=== PATIENT | female | born 1935 | race Caucasian/White ===

== ENCOUNTER 2016-09-14 21:29 | Emergency (ER) | payer OTHER ==
--- NOTE | 2016-09-14 21:25 | EDPHY ---
H & P Time Seen by Provider: 09/14/16 21:29 HPI/ROS: CHIEF COMPLAINT: Chest pain HISTORY OF PRESENT ILLNESS: Patient arrives by EMS after having called her caregiver at 7:00 p.m. for an episode of chest pain. The patient tells me she at that time was lying in bed and had left arm pain and chest pain and possibly radiating to her jaw but only lasted 30 seconds. Per her caregiver she was a little bit short of breath at that time, but denies any symptoms now. Symptoms were moderate then and presently gone. No syncope, no coughing, no fever or chills. REVIEW OF SYSTEMS: Eye: no change in vision ENT: no sore throat or dental symptoms Cardiac: HPI Pulmonary: no cough or SOB Abdomen: no vomiting, diarrhea, abdominal pain Musculoskeletal: no back pain Skin: no rash Neuro: no headache Constitutional: no fever : no urinary symptoms A comprehensive 10 point review of systems is otherwise negative aside from elements mentioned in the history of present illness. PAST MEDICAL HISTORY: History also through the patient's caregiver Mary who is present in the ED shortly after EMS arrival. Includes atrial fibrillation, surgery for congenital heart issue, paranoid schizophrenia. Hypertension and GERD. Social history: Transported from [facility]. Son also present during ED course. General Appearance: Alert and conversant, cooperative. Thin. Eyes: No scleral icterus. ENT, Mouth: Normal mucous membranes. Normal pharynx, no trismus. Respiratory: Normal respiratory effort, breath sounds equal, lungs are clear to auscultation. Cardiovascular: Irregular rate and rhythm, no murmur. Gastrointestinal: Abdomen is soft and non tender. Neurological: Alert and answers questions, follows commands. Normally conversant. Face symmetric, normal movement and sensation in all extremities. Skin: Warm and dry, no rashes. Musculoskeletal: No peripheral edema and no joint swelling. Normal ROM of left shoulder and arm, no deformity or tenderness there. Psychiatric: Not agitated. Occasionally tangential but able to be redirected. Baseline neuro per family. Emergency Department course/MDM: Patient is on Eliquis for atrial fibrillation, no aspirin given, and I think pulmonary embolism would be unlikely. No acute ischemic changes on EKG, symptoms only lasted half a minute per patient. 2157: Heart rate up and the 130s, 5 mg IV metoprolol given as she is already on metoprolol. 2230: I had an extensive discussion with the patient, her caregiver, and her son regarding the data including elevated troponin and options, including admission and possible interventions for ACS. She does have a MOST form that clearly states no CPR if she goes into cardiac arrest. She wants to minimize invasive procedures including angiography or anything requiring inpatient stay or sedation. Warned that if discharged about myocardial infarction, "heart attack" and cardiac arrest as possible outcomes/consequences. At this point they wanted to discuss among family and will get back to me with the decision. 2240: hr 108. The son tells me they have discussed the patient's situation with her, and with her brother (retired physician) via phone, and they would like to go home. That is her clear preference. The son who is POA, patient, caregiver, and her brother all feel this is a reasonable decision. They state that they understand that it is possible she had a heart attack tonight and that by going home she risks cardiac arrest, worsening cardiac disability, or . 2248: Discussed with injection wax molder for PCP who agrees with plan. Constitutional: Initial Vital Signs Temperature (C) 36.6 C 09/14/16 21:46 Heart Rate 113 H 09/14/16 21:46 Respiratory Rate 16 09/14/16 21:46 Blood Pressure 133/74 H 09/14/16 21:46 O2 Sat (%) 96 09/14/16 21:46 O2 Delivery Mode Room Air Allergies/Adverse Reactions: STRAWBERRIES Allergy (Unknown, Uncoded 09/14/16 21:45) Home Medications: Medication Instructions Recorded Digoxin 09/14/16 Eliquis 09/14/16 Ibuprofen 09/14/16 Metoprolol Tartrate 09/14/16 Olanzapine 09/14/16 Pepcid 09/14/16 Medical Decision Making - Diagnostics EKG Interpretation: 12-lead EKG interpreted by me; official reading is in trace master. My interpretation is atrial fibrillation, rate 128. No acute ischemic changes. Imaging Results: Imaging Impressions Chest X-Ray 09/14/16 21:36 Impression: Nothing acute radiographically. Interpreted personally chest x-ray no change from 09/05/2015. Specifically no widened mediastinum or pulmonary infiltrates. Differential Diagnosis: Differential diagnosis considered for chest pain including but not limited to myocardial ischemia, aortic dissection, pericarditis, pulmonary embolus, chest wall pain, pleural inflammation and pulmonary infectious causes. Consult/Admit Bed Type: 2247 for Jeri Lim - Data Points Laboratory Results: Laboratory Results 09/14/16 21:39 09/14/16 21:39 09/14/16 09/14/16 09/14/16 21:39 21:39 21:39 WBC 6.46 10^3/uL 10^3/uL (3.80-9.50) RBC 4.11 10^6/uL L 10^6/uL (4.18-5.33) Hgb 13.1 g/dL g/dL (12.6-16.3) Hct 40.7 % % (38.0-47.0) MCV 99.0 fL fL (81.5-99.8) MCH 31.9 pg pg (27.9-34.1) MCHC 32.2 g/dL L g/dL (32.4-36.7) RDW 12.9 % % (11.5-15.2) Plt Count 355 10^3/uL 10^3/uL (150-400) MPV 10.5 fL fL (8.7-11.7) Neut % (Auto) 37.9 % L % (39.3-74.2) Lymph % (Auto) 46.3 % H % (15.0-45.0) [place] % (Auto) 9.8 % % (4.5-13.0) Eos % (Auto) 4.5 % % (0.6-7.6) Baso % (Auto) 1.2 % % (0.3-1.7) Nucleat RBC Rel Count 0.0 % % (0.0-0.2) Absolute Neuts (auto) 2.45 10^3/uL 10^3/uL (1.70-6.50) Absolute Lymphs (auto) 2.99 10^3/uL 10^3/uL (1.00-3.00) Absolute Monos (auto) 0.63 10^3/uL 10^3/uL (0.30-0.80) Absolute Eos (auto) 0.29 10^3/uL 10^3/uL (0.03-0.40) Absolute Basos (auto) 0.08 10^3/uL 10^3/uL (0.02-0.10) Absolute Nucleated RBC 0.00 10^3/uL 10^3/uL (0-0.01) Immature Gran % 0.3 % % (0.0-1.1) Immature Gran # 0.02 10^3/uL 10^3/uL (0.00-0.10) Sodium 138 mEq/L mEq/L (134-144) Potassium 5.1 mEq/L mEq/L (3.5-5.2) Chloride 101 mEq/L mEq/L (97-110) Carbon Dioxide 27 mEq/l mEq/l (22-31) Anion Gap 10 mEq/L mEq/L (8-16) BUN 24 mg/dL H mg/dL (7-23) Creatinine 0.8 mg/dL mg/dL (0.6-1.0) Estimated GFR > 60 Glucose 95 mg/dL mg/dL (70-100) Calcium 9.8 mg/dL mg/dL (8.5-10.4) Troponin I 0.155 ng/mL H ng/mL (0-0.034) Digoxin 1.0 ng/mL ng/mL (0.8-2.0) Medications Given: Discontinued Medications Metoprolol Tartrate (Lopressor Injection) 5 mg IVP EDNOW ONE Stop: 09/14/16 21:59 Last Admin: 09/14/16 22:05 Dose: 5 mg Departure - Departure Disposition: Home, Routine, Self-Care Clinical Impression: Chest pain, Troponin level elevated Condition: Good Instructions: Chest Pain (ED) Referrals: Brian Lim MD [Medical Doctor] - As per Instructions
--- NOTE | 2016-09-14 21:43 | CPEKG ---
Heart Rate: 128 RR Interval: 469 QRSD Interval: 90 QT Interval: 276 QTC Interval: 403 QRS [place]: 76 T Wave [place]: 126 EKG Severity - ABNORMAL ECG - EKG Impression: ATRIAL FIBRILLATION, V-RATE 89-160 Electronically Signed By: Mohit Meraz 14-Sep-2016 21:51:15
[2016-09-14 21:45] LABS: % IMMATURE GRANULYOCYTES 0.3 % (0.0-1.1); ABSOLUTE IMMATURE GRANULOCYTES 0.02 10^3/uL (0.00-0.10); ADD DIFF? NO; ADD MORPH? NO; ADD SCAN? NO; ATYPICAL LYMPHOCYTE FLAG 0 (0-99); FRAGMENT RBC FLAG 0 (0-99); HEMATOCRIT 40.7 % (38.0-47.0); HEMOGLOBIN 13.1 g/dL (12.6-16.3); LEFT SHIFT FLG 0 (0-99); LIPEMIA HEMOLYSIS FLAG 80 (0-99); MEAN CELL HEMOGLOBIN 31.9 pg (27.9-34.1); MEAN CELL HEMOGLOBIN CONCENTR. 32.2 g/dL (32.4-36.7); MEAN PLATELET VOLUME 10.5 fL (8.7-11.7); PLATELET CLUMPS FLAG 0 (0-99); PLATELET COUNT 355 10^3/uL (150-400); RED BLOOD CELL COUNT 4.11 10^6/uL (4.18-5.33); RED CELL DISTRIBUTION WIDTH 12.9 % (11.5-15.2)
[2016-09-14 21:50] VITALS: RESP 16; TEMP 97.9; O2SAT 96
[2016-09-14 21:55] LABS: ANION GAP 10 mEq/L (8-16); CALCIUM 9.8 mg/dL (8.5-10.4); CARBON DIOXIDE 27 mEq/l (22-31); CHLORIDE 101 mEq/L (97-110); CREATININE 0.8 mg/dL (0.6-1.0); GLOMERULAR FILTRATION RATE > 60; GLUCOSE 95 mg/dL (70-100); POTASSIUM 5.1 mEq/L (3.5-5.2); SODIUM 138 mEq/L (134-144)
[2016-09-14] MEDS ORDERED: METOPROLOL TARTRATE 5 MG/5 ML INJ IVP ONE (21:58)
[2016-09-14] MEDS ORDERED: METOPROLOL TARTRATE 5 MG/5 ML INJ ONE (21:59)
[2016-09-14 22:07] LABS: TROPONIN I 0.155 ng/mL (0-0.034)
[2016-09-14 23:01] VITALS: BP 115/74; PULSE 101
== END 2016-09-14 23:02 | disposition home or self-care (01) ==
LOC: EDUNIT#
DX: R07.9 Chest pain, unspecified (principal); R79.89 Other specified abnormal findings of blood chemistry; Z79.01 Long term (current) use of anticoagulants
CPT/HCPCS: 96374

== ENCOUNTER 2018-07-16 17:13 | Inpatient (IN) | payer OTHER ==
--- NOTE | 2018-07-16 17:17 | EDPHY ---
H & P Time Seen by Provider: 07/16/18 17:17 - Medical/Surgical History Hx Asthma: No Hx Chronic Respiratory Disease: No Hx Diabetes: No Hx Cardiac Disease: No Hx Renal Disease: No Hx Cirrhosis: No Hx Alcoholism: No Hx HIV/AIDS: No Hx Splenectomy or Spleen Trauma: No Other PMH: Heart av shunt, kidney stones, tonsils, probable PDA repair as a child, paranoid schizo, a fib, right cataract, paranoid schizo, HTN, GERD, osteoporosis - Social History Smoking Status: Never smoked Constitutional: Initial Vital Signs Temperature (C) 36.8 C 07/16/18 17:15 Heart Rate 158 H 07/16/18 17:15 Respiratory Rate 16 07/16/18 17:15 Blood Pressure 155/114 H 07/16/18 17:15 O2 Sat (%) 92 07/16/18 17:15 O2 Delivery Mode Room Air Allergies/Adverse Reactions: STRAWBERRIES Allergy (Unknown, Uncoded 09/14/16 21:45) Home Medications: Medication Instructions Recorded Digoxin 09/14/16 Eliquis 09/14/16 Olanzapine 09/14/16 Carbamide Peroxide [Debrox Ear 5 drop EACHEAR TU 07/16/18 drops (*)] Neurontin 07/16/18 [place] 5-325 Tablet 07/16/18 Tylenol 07/16/18 Vitamin B12 07/16/18 Medical Decision Making - Diagnostics Imaging Results: Imaging Impressions Chest X-Ray 07/16/18 17:28 Impression: 1. Borderline cardiomegaly with prominence of pulmonary vasculature centrally. Consider pulmonary hypertension. 2. Hyperexpanded lungs with possible COPD. Hip X-Ray 07/16/18 17:28 Impression: Impacted right femoral neck fracture. Results called and discussed with Felton Hernandez MD on 07/16/2018 at 18:16. Imaging: I viewed and interpreted images myself ED Course/Re-evaluation: CHIEF COMPLAINT: Fall, right hip pain HISTORY OF PRESENT ILLNESS: This patient is an 83 year old female who arrives via EMS with right hip pain after a syncopal episode and fall at her assisted living home today. She turned around to sit on the toilet this afternoon and fainted. She hit the floor on her right side in the bathroom. She states she has never fainted before. She denies having any trip or slip. She complains of right hip pain and difficulty moving her right leg. She denies striking her head in her fall and had no other complaints of pain. No recent illness of other complaints. REVIEW OF SYSTEMS: A comprehensive 10 system review of systems is otherwise negative aside from elements mentioned in the history of present illness and medical decision making. PHYSICAL EXAM: HR, BP, O2 Sat, RR. Temp noted General Appearance: Alert, well hydrated, appropriate, and non-toxic appearing. Head: Atraumatic without scalp tenderness or obvious injury Eyes: Pupils equal, round, reactive to light and accommodation, EOMI, no trauma , no injection. Ears: Clear bilaterally, no perforation, normal landmarks Nose: Atraumatic, no rhinorrhea, clear. Throat: There is no erythema or exudates, no lesions, normal tonsils, mucus membranes moist. Neck: Supple, 2+ carotid upstroke, nontender, no lymphadenopathy. Respiratory: No retractions, no distress, no wheezes, and no accessory muscle use. Lungs are clear to auscultation bilaterally. Cardiovascular: Regular rate and rhythm, no murmurs, rubs, or gallops. Bilateral carotid, radial, dorsalis pedis, and posterior tibial pulses intact. Good capillary refill all extremities. Gastrointestinal: Abdomen is soft, nontender, non-distended, no masses, no rebound, no guarding, no peritoneal signs. Musculoskeletal: Normal active ROM of all extremities, atraumatic. Neurological: Alert, appropriate, and interactive. The patient has normal DTRs and non-focal cranial nerves, motor, sensory, and cerebellar exam. Skin: No rashes, good turgor, no nodules on palpation. Past medical history: Atrial fibrillation. Hypertension. GERD. Osteoporosis. Past surgical history: A/V shunt placement. Family history: Noncontributory Social history: Family at bedside. Lives at [facility]. DIFFERENTIAL DIAGNOSIS: The differential diagnosis for the patient's syncope included but was not limited to vasovagal syncope, arrhythmia, dehydration, cardiogenic causes, neurogenic causes, and blood loss. The differential diagnosis for the patient's trauma included but was not limited to intracranial injury, long bone and pelvic bone fractures, spinal injury, intra-abdominal injury, and intra-thoracic injury. MEDICAL DECISION MAKING: This 83 year old female presents with right hip pain following a possible syncopal episode and fall this evening. Plan for x-ray of the right hip. Given the unknown etiology of her fall and reported syncopal episode, further medical workup is warranted in this patient. Plan for labs including CBC, chemistries, troponin, co-ag panel. Plan for EKG and chest x-ray. 17:53 Per the patient's hospice nurse, who is now at bedside, the patient has had multiple past syncopal events; this is not uncommon for her. The family would like to forgo any further workup regarding her syncopal episodes at this time and prefer discharge home back to her assisted living facility if appropriate. 18:00 X-ray shows evidence of impacted right femoral neck fracture. Discussed this with with patient's son, her POA, as well as more family members and her hospice nurse. Discussed further options for care including surgery and rehabilitation vs. returning to hospice. The patient's son states his other family members are in agreement that they would prefer to avoid surgery at this time. The patient will likely need to go to a nursing home facility soon rather than return to her assisted living facility. Patient needs to be admitted for pain control and assistance while appropriate placement is found. Her family wishes to forgo any additional tests including EKG, blood work. The patient has known atrial fibrillation, which she is in at this time. The patient is DNR and on hospice care, and the family decline any interventions for this. They do however consent to IV access for pain management. 19:[address] Spoke with hospitalist service. Dr. Caicedo accepts admission for right femoral neck fracture. - Data Points Medications Given: Fentanyl (Sublimaze) 50 mcg IVP Q45M PRN PRN Reason: Pain, Severe Unable to Take PO Last Admin: 07/16/18 19:21 Dose: 50 mcg Discontinued Medications Hydrocodone Bitart/Acetaminophen ([place] 5/325) 2 tab PO EDNOW ONE Stop: 07/16/18 18:36 Last Admin: 07/16/18 18:40 Dose: Not Given Hydrocodone Bitart/Acetaminophen ([place] 5/325) 1 tab PO EDNOW ONE Stop: 07/16/18 18:41 Last Admin: 07/16/18 18:41 Dose: 1 tab Sodium Chloride (Ns) 1,000 mls @ 0 mls/hr IV EDNOW ONE; Wide Open PRN Reason: Protocol Stop: 07/16/18 19:09 Last Admin: 07/16/18 19:51 Dose: Not Given Departure - Departure Disposition: [facility] In[facility] Acute Clinical Impression: Fracture of femoral neck, right, closed Qualifiers: Encounter type: initial encounter Qualified Code(s): S72.001A - Fracture of unspecified part of neck of right femur, initial encounter for closed fracture Condition: Fair Report Scribed for: Felton Hernandez Report Scribed by: Liliana Montenegro Date of Report: 07/16/18 Time of Report: 21:03
[2018-07-16] MEDS ORDERED: HYDROCODONE/APAP 5/325 TAB ONE ×2 (18:34)
[2018-07-16] MEDS ORDERED: HYDROCODONE/APAP 5/325 TAB PO ONE ×2 (18:35→18:40)
[2018-07-16] MEDS ORDERED: NS 1,000 ML IV ONE (19:08)
[2018-07-16] MEDS ORDERED: fentaNYL 100 MCG/2 ML INJ IVP PRN (19:09)
[2018-07-16] MEDS ORDERED: fentaNYL 100 MCG/2 ML INJ ONE (19:16)
--- NOTE | 2018-07-16 19:26 | HOSPPROG ---
Hospitalist Progress Note Assessment/Plan: 83 yo F with PMH of paranoid schizophrenia, a fib, recurrent syncope and failure to thrive presenting from assisted living where she is on hospice following a syncopal event with acute right hip pain found to have a right femoral neck fracture. # right femoral neck fracture: discussed with patients family including her son Doni who is MDPOA and they are all quite clear that patient is hospice and does not wish any interventions outside of comfort measures for this--no surgery etc. Unfortunately, patient cannot return to her assisted living facility now that she cannot ambulate, dispo tbd as below # a fib w/rvr: without plans for treatment, she is on anticoagulation for this which will be held for now given above and risk of bleeding into long bone fracture, will not monitor, will resume digoxin # malnutrition: patient has had significant weight loss over the last years, allow her to eat as tolerated # recurrent syncope: in the setting of hypotension associated with a fib, as above, no further w/u # paranoid schizophrenia: currently appears compensated, family plans to stay with her in house to help with any potential agitation etc, continue olanzapine # IP status # Code status: comfort care only, son Doni is MDPOA, patient in hospice prior to admission, on hold for now given hospitalization, needs higher level of care following discharge Care plan reviewed with family present at bedside, as well as ER doctor and DELMI Harman. Please see DELMI Harman's H&P for further details. Objective: Vital Signs Temp Pulse Resp BP Pulse Ox 36.8 C 143 H 24 H 125/79 H 92 07/16/18 17:15 07/16/18 18:50 07/16/18 18:50 07/16/18 18:50 07/16/18 18:50 ICD10 Worksheet Patient Problems: Problems Problem Status Onset Atrial fibrillation Acute Neuropathy Acute Hypertension Acute Syncope Acute Fracture of femoral neck, right, closed Acute
[2018-07-16] MEDS ORDERED: HYDROmorphONE/DILAUDID 1 MG/ML INJ IVP PRN (19:28)
[2018-07-16] MEDS ORDERED: ONDANSETRON DISINTEGRATING 4 MG TAB PO PRN (19:28)
[2018-07-16] MEDS ORDERED: oxyCODONE IR 5 MG TAB PO PRN (19:28)
--- NOTE | 2018-07-16 19:40 | PDGENHP ---
<Kat Harman - Last Filed: 07/16/18 19:57> History and Physical - Chief Complaint Syncopal episode with injury - History of Present Illness HPI: 83 y/o with hx of paranoid schizophrenia, a-fib, HTN, GERD and osteoporosis presents from her assisted-living today with right hip pain after experiencing a syncopal episode while using the restroom. She denies hitting her head but instead, impacting her right side of her body most notably her right hip - x-ray revealing an impacted right femoral fracture. She denies ever fainting before however she has had multiple syncopal episodes in the past , last one being 3 years ago. Denies chest pains, palpitations, nausea, vomiting, fever, chills. Denies pain other than to her right hip. No headache or vision changes. She is on hospice and her hospice caregiver and son who is also MPOA were present. They do not wish to proceed with surgery at this time. She is being admitted for pain management and further monitoring. History Information - Allergies/Home Medication List Allergies/Adverse Reactions: STRAWBERRIES Allergy (Unknown, Uncoded 09/14/16 21:45) Home Medications: Apixaban [Eliquis] 2.5 mg PO BID 09/14/16 [Last Taken Unknown] Digoxin [Lanoxin 125 mcg (RX)] 125 mcg PO DAILY 09/14/16 [Last Taken Unknown] OLANZapine [Zyprexa] 5 mg PO DAILY 09/14/16 [Last Taken Unknown] Acetaminophen [Tylenol ES 500 mg (*)] 500 mg PO BID 07/16/18 [Last Taken Unknown ] Carbamide Peroxide [Debrox Ear drops (*)] 5 drop EACHEAR TU 07/16/18 [Last Taken Unknown] Cyanocobalamin [Vitamin B12 (*)] 1,000 mcg PO DAILY 07/16/18 [Last Taken Unknown ] Gabapentin [Neurontin 300 MG (*)] 600 mg PO BID 07/16/18 [Last Taken Unknown] Hydrocodone/APAP 5/325 [[place] 5/325 (*)] 1 each PO DAILY 07/16/18 [Last Taken Unknown] I have personally reviewed and updated: family history, medical history, social history, surgical history Past Medical History: A-fib, Kidney stones, paranoid schizophrenia, HTN, GERD, Osteoporosis - Surgical History Additional surgical history: Heart AV shunt in early 20s - Family History Positive for: non-pertinent - Social History Smoking Status: Never smoked Alcohol Use: None Drug Use: None Additional social history: Lives at assisted-living. Hospice care. Review of Systems Review of Systems: ROS: 10pt was reviewed & negative except for what was stated in HPI & below Physical Exam Physical Exam: Lab data pending. Imaging reviewed. Discussed case with admitting physician, Dr. David Caicedo. CXR: borderline cardiomegaly w/ prominence of pulmonary vasculature centrally and hyperexpanded lungs. EKG: pending Hip x-ray: see HPI Temp Pulse Resp BP Pulse Ox 36.8 C 157 H 20 136/84 H 90 L 07/16/18 17:15 07/16/18 19:24 07/16/18 19:24 07/16/18 19:27 07/16/18 19:24 Constitutional: uncomfortable (Pleasant and cooperative pt, appears to be mildly distressed d/t acute pain of hip.) Eyes: PERRL, anicteric sclera, EOMI Ears, Nose, Mouth, Throat: hearing normal, ears appear normal, no oral mucosal ulcers, hard of hearing Cardiovascular: no murmur, rub, or gallop, irregularly irregular, tachycardia Peripheral Pulses: 2+: dorsalis-pedis (R) (Radial 2+), dorsalis-pedis (L) ( Radial 2+) Respiratory: reduced air movement Gastrointestinal: normoactive bowel sounds, soft, non-tender abdomen, no palpable masses Genitourinary: no bladder fullness, no bladder tenderness Skin: warm, normal color, no rashes or abrasions, no fluctuance, no induration, No mottled Musculoskeletal: pain with ROM (RLE; able to wiggle toes, +DF/PF. Pain w/ ROM. Sensation intact.) Neurologic: AAOx3, sensation intact bilaterally, CN II-XII Intact Psychiatric: interacting appropriately, not anxious, not encephalopathic, thought process linear Lymph, Heme, Immunologic: no cervical LAD, no supraclavicular LAD Assessment & Plan Plan: 83 y/o hospice pt with hx of osteoporosis, a-fib, syncopal episodes, and paranoid schizophrenia is here with acute right femoral fracture after syncopal episode earlier today. Family does not want to proceed with surgery, however she does need to be admitted for pain management and a-fib. 1. Right femoral fx -No surgery -PT/OT to evaluate and treat. She is WBAT however I suspect she will place minimal to no weight on her RLE. -Pain management PO/IVP PRN -Ice compress 2. A-fib: she is presenting tachy 130-140s but is asymptomatic. Acute pain and trauma possible causative factors for elevated HR. -EKG/CBC/BMP/INR pending -On Eliquis, digoxin -No extraordinary actions at this time d/t strict hospice 3.Skin: per hospice caregiver, pt has tendency to develop sacral pressure wounds but is not aware of any wound right now. -Full skin check upon arrival to unit -Q2 turns 4. GERD: no complaints at this time. 5. Paranoid schizophrenia: caregiver will be spending one night w/ the pt. -On olanzapine Diet: Regular VTE ppx: SCDs, Eliquis Code: DNR Dispo: Admit to inpatient <David Caicedo - Last Filed: 07/16/18 20:41> History and Physical - History of Present Illness Review of Systems Review of Systems: Physical Exam Physical Exam: Temp Pulse Resp BP Pulse Ox 36.8 C 129 H 18 136/84 H 95 07/16/18 17:15 07/16/18 20:32 07/16/18 20:32 07/16/18 19:27 07/16/18 20:32 O2 (L/minute) 2 Assessment & Plan Assessment: Fracture of femoral neck, right, closed (Acute) Plan: Patient seen and evaluated independently and care plan reviewed with DELMI Harman as above, agree with her assessment. Please see separate documentation for further details.
[2018-07-16] MEDS: ONDANSETRON 4 MG/2 ML VIAL IVP PRN (22:46)
[2018-07-16] MEDS: ACETAMINOPHEN 500 MG TAB PO SCH (22:51)
[2018-07-16] MEDS: GABAPENTIN 300 MG CAP PO SCH (22:51)
[2018-07-17 05:40] LABS: PLATELET COUNT 274 10^3/uL (150-400)
[2018-07-17] MEDS: ACETAMINOPHEN 325 MG TAB PO PRN ×2 (05:41→17:25)
[2018-07-17] MEDS: ONDANSETRON 4 MG/2 ML VIAL IVP PRN (05:41)
[2018-07-17] MEDS: DIGOXIN 125 MCG TAB PO SCH (09:02)
[2018-07-17] MEDS: CYANO/VITAMIN B12 1000 MCG TAB PO SCH (09:02)
[2018-07-17] MEDS: OLANZapine 5 MG TAB PO SCH (09:02)
[2018-07-17] MEDS: GABAPENTIN 300 MG CAP PO SCH ×2 (09:02→21:16)
[2018-07-17] MEDS: ACETAMINOPHEN 500 MG TAB PO SCH ×2 (09:03→21:16)
[2018-07-17] MEDS: HYDROCODONE/APAP 5/325 TAB PO SCH (09:11)
[2018-07-17] MEDS ORDERED: SODIUM ZIRCONIUM CYCLOSILICATE 10 GM PACKET PO ONE (10:15)
--- NOTE | 2018-07-17 10:19 | HOSPPROG ---
Hospitalist Progress Note Assessment/Plan: DIAGNOSES: * Acute impacted right femoral neck fracture * Fall at home with injury * Gait instability with high fall risk * Dehydration * Hyperkalemia * Tachycardia heart rate 130s plus/minus: History of AFib but we have not done an EKG here at this time nor have we made any efforts yet for improved rate control, risk of developing significant congestive heart failure * Schizophrenia, chronic but with severe ongoing delusional abnormalities * She does not appear to have decisional capacity on my assessment * Patient on hospice care but is unclear to me why she is on hospice care per se At this point the patient has hip fracture but I am able to move her hip with a reasonable range of motion without causing her much discomfort. It might be reasonable to attempt to treat this conservatively and to allow weight-bearing as tolerated for transfers etc. However at the moment I am unaware of a specific condition which will take the patient's life from her in the near future or why she is on hospice. When I look at her situation if she has significant ongoing pain with any movement and does not fix her hip, she may be subject to quite a bit of ongoing pain for which little can be done other than pain medicines which may cause quite a bit of side effects for her. Unless she is going to from some other illness in the near future, it is possible that the way to get the best comfort relief for her with the least complications would be surgical repair of the hip. At present with her fast heart rates she is at risk of developing significant congestive heart failure leading to his shortness of breath weakness higher fall risk with potential recurrent injuries. She clearly needs better rate control and will start treating that way now but need to check EKG PLANS: * Begin physical therapy occupational therapy and assess her mobility and comfort level * Preventive measures for skin pressure injuries * DVT prophylaxis * Pain management as indicated, attempting to minimize side effects is able * Check EKG to look at heart rate, review chart to make sure she has not had bradycardic issues; will plan on likely either beta-rita calcium rita for improved rate control and will need to follow for any signs of heart failure * Check did level to make sure she is not toxic which could be aggravating schizophrenia * Continue current management of her schizophrenia with her usual medicines * Will give 1 dose of sodiums are company in for her hyperkalemia and recheck * May need to have more conversation with family/POA regarding plans if the patient has significant discomfort Seen by me on hospitals rounds as well as multidisciplinary rounds SUBJECTIVE: The patient herself right now admits to pain when her right hip with movement but feels reasonably comfortable lying still in bed No fever symptoms Assessment of her symptoms otherwise is very difficult due to her schizophrenia OBJECTIVE Vitals reviewed: Heart rates in the 120-130s range persist Chaser Apprentice, my review: Exam: alert oriented skin warm dry color ok resps not labored lungs clear BSs heart regular abd soft nondistended nontender, bowel sounds present limbs warm, no edema iv site ok Lab data: Mild anemia otherwise unremarkable CBC Potassium 5.6 BUN 29 otherwise stable chemistries Objective: Vital Signs Temp Pulse Resp BP Pulse Ox 36.6 C 121 H 16 114/99 H 95 07/17/18 05:27 07/17/18 09:02 07/17/18 09:01 07/17/18 09:01 07/17/18 09:01 Laboratory Results 07/17/18 04:55 07/17/18 04:55 07/16/18 07/17/18 07/18/18 06:59 06:59 06:59 Intake Total 800 Balance 800 - Time Spent With Patient Time Spent with Patient: greater than 35 minutes Time Spent with Patient: Greater than 35 minutes spent on this patients care, greater than 50% of time spent counseling, educating, and coordinating care regarding the above mentioned plan. ICD10 Worksheet Patient Problems: Problems Problem Status Onset Fracture of femoral neck, right, closed Acute Atrial fibrillation Acute Hypertension Acute Neuropathy Acute Syncope Acute
--- NOTE | 2018-07-17 10:46 | WOCRNPDOC ---
WOCRN Advanced Assessment Note - Skin Integrity Problem, Advanced Assess Coccyx Dressing Type: Mepilex Border [place] Wound Tissue: Scarred Site Measurement - Head-to-Toe Length X Width X Depth (cm): 4x5x0 Pressure Injury Stage: Stage 1 Pressure Injury Present on Admit: Yes Skin Integrity Problem Comment: Extensive area of non blanching scar tissue. Likely were several full and partial thickness wounds in the past. Now closed and non blanching. Wound care will sign off Levi ABAD in room for care.
--- NOTE | 2018-07-17 11:23 | PDMN ---
Medical Necessity Medical necessity: Pt meets IP criteria per MD & MCG MG-MD Musculoskeletal Disease; est los >2 mn for eval/tx of R femoral fx w/tachycardia s/p syncopal episode w/fall; admit for further monitoring, pain management & therapies; hx AFIB, schizophrenia, sacral pressure ulcers, pt on hospice; per H&P & order 07/16
--- NOTE | 2018-07-17 16:12 | ASMTCMCOM ---
CM Note CM Note Notes: Pt discussed in rounds with Son Doni EVANS ([phone]) present. Pt admitted with right hip pain and x-rays revealed femoral neck fracture, Hx Paranoid Schiophrenia, Pt is delusional but knows were she is. OT and PT recommend SNF. Pt was with [facility] and they provided Zachary with a list of three SNF's they work with. I sent referrals to [facility], [facility] and [facility]. Other family contacts: Son Martin ([phone]) and Brother Jon Guan ([phone]). Case Management available for needs Plan: discharge to a SNF Date Signed: 07/17/2018 04:11 PM Electronically Signed By:Lesly Dowling
[2018-07-17] MEDS: APIXABAN 2.5 MG TAB PO SCH (21:16)
[2018-07-17] MEDS ORDERED: DILTIAZEM 30 MG TAB PO SCH (22:00)
[2018-07-17] MEDS ORDERED: NS 500 ML IV ONE (22:45)
[2018-07-17] MEDS: DILTIAZEM 30 MG TAB PO SCH ×2 (23:58→23:59)
[2018-07-18 04:31] LABS: PLATELET COUNT 272 10^3/uL (150-400)
[2018-07-18] MEDS: DILTIAZEM 30 MG TAB PO SCH ×3 (05:20)
[2018-07-18] MEDS: HYDROCODONE/APAP 5/325 TAB PO SCH (09:20)
[2018-07-18] MEDS: DIGOXIN 125 MCG TAB PO SCH (09:22)
[2018-07-18] MEDS: APIXABAN 2.5 MG TAB PO SCH ×2 (09:22→21:05)
[2018-07-18] MEDS: OLANZapine 5 MG TAB PO SCH (09:22)
[2018-07-18] MEDS: CYANO/VITAMIN B12 1000 MCG TAB PO SCH (09:22)
[2018-07-18] MEDS: ACETAMINOPHEN 500 MG TAB PO SCH ×2 (09:22→21:04)
[2018-07-18] MEDS: GABAPENTIN 300 MG CAP PO SCH ×2 (09:24→21:05)
[2018-07-18] MEDS ORDERED: NS 1,000 ML IV ONE (13:30)
[2018-07-18] MEDS ORDERED: DILTIAZEM 30 MG TAB PO SCH (14:00)
--- NOTE | 2018-07-18 16:22 | ASMTCMCOM ---
CM Note CM Note Notes: FOSTER spoke with members son Doni [phone]. A referral had been placed to [facility], Danyel met with the patient and son today and Doni will tour today. Doni toured [facility] and asked a referral be placed, FOSTER sent referral and [facility] called back stating if they could accept her they wouldn't have any beds until Saturday. FOSTER spoke with MELE Davis who is working with Doni @ [facility], , staff will be finance consultant over the weekend if needed. She suggested a referral to [facility] also be made, CM placed referral. FOSTER talked with Doni about SNF vs. LTC placement vs. returning to [facility] and starting 10/12 care. He will have a better understanding of direction after the visit to today. Patient discussed during clinical rounds, family is not opting to move forward with surgery on hip fracture and medical team is addressing cardiac concerns. Patient to discharge when clinically stable, possibly Saturday or Saturday. CM to follow. Discharge Plan: TBD Date Signed: 07/18/2018 04:21 PM Electronically Signed By:Annette Jo
--- NOTE | 2018-07-18 19:08 | HOSPPROG ---
Hospitalist Progress Note Assessment/Plan: DIAGNOSES: * Acute impacted right femoral neck fracture -very little pain, actually doing well w PT so far; some risk of displacement which would cause much pain -continue wt bear as tolerated w assist; fall risk precautions -using very little pain med; hope to minimize due to her confusion and fall risk -family adamant no surgery * Fall at home with injury, Gait instability with high fall risk -have asked for sitter * Dehydration, poor oral intake, prerenal azotemia -will start some IV saline at present * Hyperkalemia, resolved * A Fib heart rate 130s plus/minus: Chronic paroxysmal afib, dig for rate control at home -HR had been 130s yest, received 2 doses of dilt 30 po last night, but today has had some hypotension/bradycardia so stopped -dig level 1.1; on eliquis * Schizophrenia, chronic but with severe ongoing delusional abnormalities -she is not decisonal, very poor ability to comply with nursing care, hyperactive with need for constant attention, no awareness of safety issues; increased fall risk due to this * She does not appear to have decisional capacity on my assessment * DVT proph eliquis * Patient on hospice care, son is POA * DC planning: to remain on hospice Seen by me on hospitalist rounds as well as multidisciplinary rounds SUBJECTIVE: again very little pain overall, doing well w PT very difficult to assess symptoms otherwise Nurses note very poor intake of food/fluid OBJECTIVE Vitals reviewed: some hypotension this am, and slower HRs later in day but with better BPs; no fever Intake of fluid 400 past 24 hours, ? if this is accurate but clearly low intake Exam: alert, hyperactive, markedly delusional, disoriented, no awareness of safety issuse/fall risk; requires constant attention skin warm dry color ok resps not labored lungs clear BSs heart regular abd soft nondistended nontender, bowel sounds present limbs warm, no edema iv site ok Lab data: K normal now BUN better Na a bit low some increase wbc, stable cbc otherwise Dig level 1.1 Objective: Vital Signs Temp Pulse Resp BP Pulse Ox 36.9 C 84 16 90/50 L 97 07/18/18 16:00 07/18/18 16:00 07/18/18 16:00 07/18/18 16:00 07/18/18 16:00 Laboratory Results 07/18/18 04:15 07/18/18 04:15 07/17/18 07/18/18 07/19/18 06:59 06:59 06:59 Intake Total 800 400 350 Output Total 300 Balance 800 100 350 - Time Spent With Patient Time Spent with Patient: greater than 35 minutes Time Spent with Patient: Greater than 35 minutes spent on this patients care, greater than 50% of time spent counseling, educating, and coordinating care regarding the above mentioned plan. ICD10 Worksheet Patient Problems: Problems Problem Status Onset Fracture of femoral neck, right, closed Acute Atrial fibrillation Acute Hypertension Acute Neuropathy Acute Syncope Acute
[2018-07-18] MEDS: HYDROCODONE/APAP 5/325 TAB PO PRN (21:05)
[2018-07-18] MEDS ORDERED: NS 1,000 ML IV SCH (21:30)
[2018-07-18] MEDS ORDERED: oxyCODONE IR 5 MG TAB PO PRN (21:36)
[2018-07-19 04:41] LABS: PLATELET COUNT 225 10^3/uL (150-400)
[2018-07-19] MEDS: GABAPENTIN 300 MG CAP PO SCH ×2 (09:22→20:22)
[2018-07-19] MEDS: ACETAMINOPHEN 500 MG TAB PO SCH ×2 (09:23→20:15)
[2018-07-19] MEDS: APIXABAN 2.5 MG TAB PO SCH ×2 (09:23→20:19)
[2018-07-19] MEDS: DIGOXIN 125 MCG TAB PO SCH (09:23)
[2018-07-19] MEDS: OLANZapine 5 MG TAB PO SCH (09:23)
[2018-07-19] MEDS: CYANO/VITAMIN B12 1000 MCG TAB PO SCH (09:25)
[2018-07-19] MEDS ORDERED: POLYETHYLENE GLYCOL 3350 17 GM PKT PO PRN (10:01)
[2018-07-19] MEDS ORDERED: BISACODYL 10 MG SUPP PR PRN (10:01)
[2018-07-19] MEDS ORDERED: MAGNESIUM HYDROXIDE 30 ML UDCUP PO PRN (10:01)
[2018-07-19] MEDS ORDERED: LACTULOSE 20 GM/30 ML UDCUP PO PRN (10:01)
--- NOTE | 2018-07-19 11:25 | HOSPPROG ---
Hospitalist Progress Note Assessment/Plan: 83 y/o with hx of paranoid schizophrenia, a-fib, HTN, GERD and osteoporosis presents from her assisted-living today with right hip pain after experiencing a syncopal episode while using the restroom. She denies hitting her head but instead, impacting her right side of her body most notably her right hip - x- ray revealing an impacted right femoral fracture. She denies ever fainting before however she has had multiple syncopal episodes in the past, last one being 3 years ago. She is on hospice and her hospice caregiver and son who is also MPOA were present. They do not wish to proceed with surgery # Acute impacted right femoral neck fracture, patient's MD SCOTTY declined surgery at this point. * Pain control * Essentially bed-bound at this point * [facility] need [facility] discharge # fall and gait instability. # AFib with a heart rate in the 100 stool 130s. Patient asymptomatic given poor prognosis could consider discontinuing Eliquis in the future. Rate controlled with digoxin. # schizophrenia, chronic but with severe ongoing delusions. Patient not decision all # dehydration with prerenal azotemia. Will discontinue IV fluids if still running. # DVT prophylaxis, currently on Eliquis Family working on skilled placement with hospice. Subjective: Patient denies pain unless she moves her right leg. Patient new to me and chart reviewed Objective: Vital Signs Temp Pulse Resp BP Pulse Ox 36.8 C 98 16 100/56 L 91 L 07/19/18 08:44 07/19/18 09:23 07/19/18 08:44 07/19/18 08:44 07/19/18 08:44 Laboratory Results 07/19/18 04:25 07/19/18 04:25 07/18/18 07/19/18 07/20/18 05:59 05:59 05:59 Intake Total 400 1150 Output Total 300 Balance 100 1150 - Physical Exam Constitutional: chronically ill appearing Eyes: PERRL Ears, Nose, Mouth, Throat: dry mucous membranes Cardiovascular: irregularly irregular, tachycardia Respiratory: no respiratory distress Gastrointestinal: soft, non-tender abdomen Genitourinary: no bladder fullness Skin: warm Musculoskeletal: joint tenderness, pain with ROM, generalized weakness Neurologic: No AAOx3 Psychiatric: poor insight, poor judgement, poor memory ICD10 Worksheet Patient Problems: Problems Problem Status Onset Fracture of femoral neck, right, closed Acute Atrial fibrillation Acute Hypertension Acute Neuropathy Acute Syncope Acute
--- NOTE | 2018-07-19 13:02 | ASMTCMCOM ---
CM Note CM Note Notes: CM spoke to son, Doni. Doni has toured [facility] and has decided that he does not want his mother to be d/jose there. He will be touring [facility] today and asked that referrals be sent. He was told present plan is to d/c her Saturday or Saturday. D/C Plan: SNF Date Signed: 07/19/2018 01:01 PM Electronically Signed By:Nellie Aviles
--- NOTE | 2018-07-19 15:27 | ASMTCMCOM ---
FOSTER Note CM Note Notes: CM met with pt's son, Doni. Doni has chosen [facility] for his mother. D/C Plan: [facility] Date Signed: 07/19/2018 03:26 PM Electronically Signed By:Nellie Aviles
--- NOTE | 2018-07-19 16:01 | ASMTCMCOM ---
CM Note CM Note Notes: CM spoke with Dr Vu; d/c will be tomorrow. [facility] notified. D/C Plan: [facility] Date Signed: 07/19/2018 04:00 PM Electronically Signed By:Nellie Aviles
[2018-07-19] MEDS: HYDROCODONE/APAP 5/325 TAB PO PRN (20:17)
[2018-07-19] MEDS: SENNOSIDES/DOCUSATE SODIUM TAB PO SCH (20:20)
[2018-07-20 07:33] VITALS: BP 109/61
[2018-07-20] MEDS: GABAPENTIN 300 MG CAP PO SCH (08:03)
[2018-07-20] MEDS: SENNOSIDES/DOCUSATE SODIUM TAB PO SCH (08:03)
[2018-07-20] MEDS: ACETAMINOPHEN 500 MG TAB PO SCH (08:03)
[2018-07-20] MEDS: DIGOXIN 125 MCG TAB PO SCH (08:04)
[2018-07-20] MEDS: OLANZapine 5 MG TAB PO SCH (08:04)
[2018-07-20] MEDS: APIXABAN 2.5 MG TAB PO SCH (08:04)
[2018-07-20] MEDS: CYANO/VITAMIN B12 1000 MCG TAB PO SCH (08:04)
--- NOTE | 2018-07-20 09:37 | PDIAF ---
- Diagnosis Diagnosis: hip fracture, schizophrenia, dementia Code Status: Do Not Resuscitate - Medication Management Discharge Medications: electronically signed and located in the Home Medication List. - Orders Services needed: Registered Nurse, Certified Professor Of Mechanical Engineering, Master Sociology Instructor (Hospice) Diet Recommendation: no restrictions on diet Diet Texture: Regular Texture Diet - Follow Up Care Current Providers and Referrals: Brian Lim MD [Primary Care Provider] - As per Instructions
--- NOTE | 2018-07-20 10:04 | ASMTCMCOM ---
CM Note CM Note Notes: Patient has been discharged and will go to [facility] SN[facility] in [place]. Call to Nancy home school liaison officer and she requested that Hospice be called message left with [facility]. Awaiting return call. Final orders via allscripts to [facility]. Patient will need stretcher transfer. Spoke to the patient's son Rylee to inform him of the discharge. CM will alert RN to call report. CM available should other needs arise. Plan: Dc to [facility]. Date Signed: 07/20/2018 10:03 AM Electronically Signed By:Arlen Layton RN
--- NOTE | 2018-07-20 10:04 | ASMTLACE ---
JANNET Length of stay for Answers: 3 days current admission Comorbidities - select Answers: Other Notes: AFib; HTN all that apply # of Emergency department Answers: 1-2 visits in the last 6 months Social determinants Answers: Mental health diagnosis (anxiety, depression, pers onality disorders, etc.) Score: 8 Date Signed: 07/20/2018 10:04 AM Electronically Signed By:Arlen Layton RN
--- NOTE | 2018-07-20 10:05 | GDS ---
[f rep st] DISCHARGE SUMMARY DIAGNOSES: 1. Acute impacted right femoral neck fracture. No surgical repair. 2. Gait instability and fall risk. 3. Atrial fibrillation with rapid ventricular response, patient asymptomatic. 4. Schizophrenia. 5. Cognitive decline. PROCEDURES DONE: Hip x-ray showing the above. CONSULTATIONS: Wound Care. HOSPITAL COURSE: The patient is an 83-year-old who was admitted on July 16 with a hip fracture . She underwent a mechanical fall while in her assisted living facility and is being admitted for ev aluation. The family was quite involved in her assessment and did not want to proceed with any surgi jose d procedures to fix her hip. She is currently on hospice, and they would like to continue comfort measures only at this time. Because she is unable to ambulate as she did before, she can no longer r eturn to her assisted living and is being transferred to a senior care facility the family has pi cked out. She will continue hospice there. Main issues on discharge are her hip fracture. She can weight bear as tolerated as pain manages. She is at high risk for complications. She also has atria l fibrillation with rapid ventricular response. She is currently on digoxin for rate control. Her r ate has been anywhere from 80 to 130 here in the hospital. She they did attempt to treat her with di ltiazem. However, her blood pressure dropped precipitously on the medication, so currently she is on digoxin for rate control, which is still not ideal. However, the patient is relatively asymptomatic with her AFib, and given her hospice situation, would not treat with any further medications unless she does become symptomatic. Her other medical issues were fairly stable. Her schizophrenia is rela tively stable, although she has had some cognitive decline during the years and worse during her hosp italization. CONDITION ON DISCHARGE: Fair. Heart rate is anywhere from 96 to 118 over the last 24 hours. Blood pressure 109/61. She is 92% on 2 L. Appears relatively comfortable, without complaints. DISCHARGE MEDICATIONS: Please see discharge medication form. FOLLOWUP: She will be discharged to [facility] with hospice. Total time spent with patient on day of discharge and coordination of care is 35 minutes. /[id number]/MODL
[2018-07-22] MEDS ORDERED: CARBAMIDE PEROXIDE 15 ML OTIC.BTL EACHEAR SCH (09:00)
--- NOTE | 2018-07-23 11:15 | CPEKG ---
Test Reason : OPEN Blood Pressure : / mmHG Vent. Rate : 091 BPM Atrial Rate : 366 BPM P-R Int : 051 ms QRS Dur : 078 ms QT Int : 400 ms P-R-T Axes : 000 053 160 degrees QTc Int : 493 ms Atrial fibrillation Probable LVH with secondary repol abnrm Abnormal T, probable ischemia, lateral leads Confirmed by Jon Lopez ([id number] on 07/23/2018 11:15:06 AM Referred By: David Caicedo Confirmed By:Jon Lopez
== END 2018-07-20 15:09 | DRG 536 ==
LOC: EDUNIT# → OBSVTOIN 19:04 → F1N 20:58
PROVIDERS: ADMIT Internal Medicine; ATTEND Internal Medicine
DX: S72.001A Fracture of unspecified part of neck of right femur, initial encounter for closed fracture (principal); F20.0 Paranoid schizophrenia; I10 Essential (primary) hypertension; K21.9 Gastro-esophageal reflux disease without esophagitis; M81.0 Age-related osteoporosis without current pathological fracture; I48.91 Unspecified atrial fibrillation; R55 Syncope and collapse; E46 Unspecified protein-calorie malnutrition; R26.81 Unsteadiness on feet; E86.0 Dehydration; E87.5 Hyperkalemia; L89.151 Pressure ulcer of sacral region, stage 1; Y92.091 Bathroom in other non-institutional residence as the place of occurrence of the external cause; Z51.5 Encounter for palliative care; Z66 Do not resuscitate
CPT/HCPCS: 96374; 97162-GP; 97165-GO; J2405; J3010